=== PATIENT | male | born 1955 | race Caucasian/White ===

== ENCOUNTER → 2017-12-08 | Outpatient (CLI) | END | disposition home or self-care (01) ==

== ENCOUNTER 2018-02-10 07:30 | Inpatient (IN) | payer BC ==
[~2018-02-10] VITALS: Ht 185.4 cm; Wt 114.7 kg
[2018-03-26] MEDS ORDERED: HYDR-2086 PO (14:04)
[2018-03-26] MEDS ORDERED: ALLO100T PO (14:04)
[2018-03-26] MEDS ORDERED: AMLO-147 PO (14:04)
[2018-04-04] MEDS ORDERED: DOCU-144 PO (14:04)
[2018-04-04] MEDS ORDERED: HYDR-3671 PO (14:04)
[2018-04-04] MEDS ORDERED: PANT40TA3 PO (14:18)
[2018-10-27] VITALS (28 sets, daily range): BP systolic 114–150; BP diastolic 65–101; PULSE 62–79; RESP 12–21; Ht 185.4 cm; Wt 114.7 kg
[2018-10-27] MEDS ORDERED: LACTATED RINGER'S 1,000 ML IV* SCH (06:00)
[2018-10-27] MEDS ORDERED: CEFAZOLIN 2 GM/50 ML (PMX) 50 ML IVPB ONE (06:00)
[2018-10-27] MEDS ORDERED: TRANEXAMIC ACID 1,000 MG in NS 100 ML INTRA-OP X1 IVPB ONE (06:00)
[2018-10-27] MEDS ORDERED: HIP PAIN COCKTAIL (CEFUROXIME) INJ SCH ×7 (06:00)
--- NOTE | 2018-10-27 06:21 | HPN ---
Date/Time of Note Date/Time of Note DATE: 10/27/18 TIME: 06:21 Interval H&P Admission Note Pt. seen H&P reviewed: No system changes RAJESH OLGUIN MD Oct 27, 2018 06:21
[2018-10-27] MEDS ORDERED: POLYMYXIN/BACITRACIN 1L IRRIG ONE (06:57)
[2018-10-27] MEDS ORDERED: BACITRACIN 50000 UNITS INJ ONE (06:57)
--- NOTE | 2018-10-27 06:59 | PDOCDIS ---
Discharge Instructions DIAGNOSIS Discharge Diagnosis Status post right total hip arthroplasty CONDITION [id number] Patient Condition: Fuphn0i Good HOME CARE INSTRUCTIONS: [id number] Diet Instructions: Bfupz1c Regular ACTIVITY: [id number] Activity Restrictions: [id number] Slowly Increase Activity Rest between Activity Avoid heavy lifting No Sexual Activity Do not Drive Do not operate Machinery Do not operate Power Tool Avoid Heavy Housework Keep Limb Elevated Weight Bearing (Weight-bear as tolerated using front-wheeled walker) [id number] Bathing Restrictions: [id number] Shower (Prineo dressing to remain on until seen postoperatively. Okay to shower with this dressing. No bathing or submersion in water.) FOLLOW UP/APPOINTMENTS Follow-up Plan Follow-up at postoperative appointment provided to you at your preoperative exam LINA CHANDRA PA-C Oct 27, 2018 06:59
[2018-10-27] MEDS ORDERED: BETHANECHOL 25 MG TAB PO PRN (07:00)
[2018-10-27] MEDS ORDERED: DIPHENHYDRAMINE 50 MG INJ IV PRN (07:00)
[2018-10-27] MEDS ORDERED: ALLO100T PO (07:00)
[2018-10-27] MEDS ORDERED: DOCUSATE SODIUM 100 MG CAP PO ONE (07:00)
[2018-10-27] MEDS ORDERED: NA PHOSPHATE/BIPHOS 133 ML ENEMA PR PRN (07:00)
[2018-10-27] MEDS ORDERED: NACL 0.9% 3 ML SYG IV SCH (07:00)
[2018-10-27] MEDS ORDERED: NALOXONE (0.4 MG/ML) INJ IV PRN (07:00)
[2018-10-27] MEDS ORDERED: SENNA/DOCUSATE NA (8.6MG/50MG) TAB PO PRN (07:00)
[2018-10-27] MEDS ORDERED: POLYMYXIN B 500000 UNIT INJ ONE (07:00)
[2018-10-27] MEDS ORDERED: MAGNESIUM HYDROXIDE 30ML CUP PO PRN (07:00)
[2018-10-27] MEDS ORDERED: ASPIRIN 81 MG TAB PO ONE (07:00)
[2018-10-27] MEDS ORDERED: oxyCODONE 5 MG TAB PO PRN (07:00)
[2018-10-27] MEDS ORDERED: BISACODYL 10 MG SUPP PR PRN (07:00)
[2018-10-27] MEDS ORDERED: HYDR-3672 PO (07:01)
[2018-10-27] MEDS ORDERED: HYDR-3980 PO (07:01)
[2018-10-27] MEDS ORDERED: GABA100C14 PO (07:02)
--- NOTE | 2018-10-27 07:31 | PREAC ---
Date/Time of Note Date/Time of Note DATE: 10/27/18 TIME: 07:29 Anesthesia Eval and Record Evaluation Time Pre-Procedure Interview DATE: 10/27/18 TIME: 07:29 Age 62 Sex male NPO: 8 hrs Preoperative diagnosis Rt Hip osteoarthritis Planned procedure Rt Hip total replacement Past Medical History Past Medical History: Includes Cardio: HTN, Dyslipidemia Musculoskeletal: Osteoarthritis GI: Morbid obesity Surgery & Anesthesia Issues No known issue Meds Anticoagulation: No Beta Bladimir within 24 hr: No Reason Beta Bladimir not given: Pt. not on B-Bladimir Reported Medications Gabapentin* (Gabapentin*) 100 Mg Capsule, 100 MG PO TID, #90 CAP 10/27/18 Hydrocodone/Acetaminophen ([place] 10-325 Tablet) 1 Each Tablet, 1 EACH PO Q6 PRN for PAIN, TAB 10/27/18 Hydralazine Hcl* (Hydralazine Hcl*) 50 Mg Tab, 50 MG PO Q6H PRN for ELEVATED BLOOD PRESSURE, #60 TAB 10/27/18 Allopurinol* (Allopurinol*) 100 Mg Tablet, 100 MG PO DAILY, TAB 10/27/18 Discontinued Reported Medications Hydrocodone Bit-Acetaminophen* (Vicodin*) 5-300 Tab, 1 TAB PO Q4H PRN for PAIN, TAB 03/26/18 Amlodipine Besylate* (Amlodipine Besylate*) 10 Mg Tablet, 10 MG PO DAILY, #30 TAB 03/26/18 Allopurinol* (Allopurinol*) 100 Mg Tablet, 100 MG PO DAILY, TAB 03/26/18 Discontinued Scripts Pantoprazole* (Protonix*) 40 Mg Tablet.dr, 40 MG PO DAILY for 30 Days, TAB Prov:RA ADAMES MD 04/04/18 Docusate Sodium* (Colace*) 100 Mg Capsule, 100 MG PO BID for CONSTIPATION, #60 CAP Prov:RA ADAMES MD 04/04/18 Hydralazine Hcl* (Hydralazine Hcl*) 25 Mg Tab, 25 MG PO Q6 for 90 Days, TAB Prov:RA ADAMES MD 04/04/18 Current Medications Lactated Ringer's 1,000 ml @ 125 mls/hr Q8H IV* Last administered on 10/27/18at 07:21; Admin Dose 125 MLS/HR; Start 10/27/18 at 06:00; Stop 10/27/18 at 13:59 Ropivacaine/ Morphine Sulfate/ Clonidine/ Epinephrine/ Ketorolac Tromethamine/ Cefuroxime Sodium/ Sodium Chloride INTRA-OP INJ ; Start 10/27/18 at 06:00 Sodium Chloride 1,000 ml @ 80 mls/hr [id number] IV ; Start 10/27/18 at 07:00 Oxycodone HCl (Roxicodone) 15 mg Q4H PRN PO PAIN; Start 10/27/18 at 07:00 Oxycodone HCl (Roxicodone) 10 mg Q4H PRN PO PAIN; Start 10/27/18 at 07:00 Oxycodone HCl (Roxicodone) 5 mg Q4H PRN PO PAIN; Start 10/27/18 at 07:00 Ondansetron HCl (Zofran Inj) 4 mg Q4H PRN IV NAUSEA AND/OR VOMITING; Start 10/28/18 at 07:00 Cefazolin Sodium/ Dextrose 50 ml @ 100 mls/hr Q8H IVPB ; Start 10/27/18 at 14:00; Stop 10/28/18 at 06:29 Celecoxib (Celebrex) 100 mg BID PO ; Start 10/28/18 at 09:00 Gabapentin (Neurontin) 100 mg TID PO ; Start 10/27/18 at 09:00 Pantoprazole (Protonix Tab) 40 mg DAILY@06 PO ; Start 10/28/18 at 06:00 Docusate Sodium (Colace) 200 mg BID PO ; Start 10/28/18 at 09:00; Stop 10/30/18 at 21:01 Simethicone (Mylicon) 80 mg TID PRN PO DISTENSION/GAS/BLOATING; Start 10/27/18 at 07:00 Senna/Docusate Sodium (Senokot-S) 2 tab BID PRN PO CONSTIPATION; Start 10/27/18 at 07:00 Magnesium Hydroxide (Milk Of Mag) 30 ml HS PRN PO CONSTIPATION; Start 10/27/18 at 07:00 Bisacodyl (Dulcolax Supp) 10 mg DAILY PRN CA CONSTIPATION; Start 10/27/18 at 07:00 Sodium Biphosphate/ Sodium Phosphate (Fleet Enema) 133 ml DAILY PRN CA CONSTIPATION; Start 10/27/18 at 07:00 Diphenhydramine HCl (Benadryl) 25 mg Q4H PRN IV ITCHING; Start 10/27/18 at 07:00 Naloxone HCl (Narcan) 0.2 mg Q2M PRN IV DECREASED REPIRATORY RATE; Start 10/27/18 at 07:00 IV Flush (NS 3 ml) 3 ml per protocol IV ; Start 10/27/18 at 07:00 Bethanechol Chloride (Urecholine) 25 mg URINARY CATH D/C PRN PO UNABLE TO VOID; Start 10/27/18 at 07:00 Aspirin (Halfprin) 81 mg BID PO ; Start 10/28/18 at 09:00 Meds reviewed: Yes Allergies Coded Allergies: No Known Allergy (Unverified , 10/27/18) Allergies Reviewed: Yes Labs/Studies Labs Reviewed: Reviewed by anesthesiologist test: N/A Studies: ECG Pre-procedure Exam Last vitals Vital Signs Date Temp Pulse Resp B/P (MAP) Pulse Ox O2 O2 Flow FiO2 Time Delivery Rate 10/27/18 98.7 69 150/101 98 Room Air 07:16 (117) Airway: Adequate mouth opening, Adequate thyromental dist Mallampati: Mallampati III Teeth: Normal Lung: Normal Heart: Normal ASA Physical Status ASA physical status: 3 Emergency: None Planned Anesthetic General/MAC: ETT Neuraxial: Spinal Pre-operative Attestations Prior to commencing anesthesia and surgery, the patient was re-evaluated, there was verification of: *The patient's identity *The results of appropriate recent lab work and preoperative vital signs *The above evaluation not changing prior to induction *Anesthetic plan, risk benefits, alternative and complications discussed with patient/family; questions answered; patient/family understands, accepts and wishes to proceed. TAE MERCEDES MD Oct 27, 2018 07:31
[2018-10-27] MEDS ORDERED: MIDAZOLAM 1 MG/ML 2 ML INJ ONE (07:36)
[2018-10-27] MEDS ORDERED: morphine SULFATE/PF (10 MG/10 ML) INJ ONE (07:37)
[2018-10-27] MEDS: TRANEXAMIC ACID 1,000 MG in NS 100 ML PRE-OP X1 IVPB ONE ×2 (08:56→09:03)
[2018-10-27] MEDS ORDERED: LIDOCAINE 2% (SDV) 5 ML INJ ONE (09:41)
[2018-10-27] MEDS ORDERED: ETOMIDATE 20 MG INJ ONE (09:41)
[2018-10-27] MEDS ORDERED: CEFAZOLIN 1 GM INJ ONE (09:41)
[2018-10-27] MEDS ORDERED: ROCURONIUM 50 MG INJ ONE (09:41)
[2018-10-27] MEDS ORDERED: PROPOFOL 20 ML ONE (09:42)
[2018-10-27] MEDS ORDERED: ONDANSETRON 4 MG INJ ONE (09:46)
--- NOTE | 2018-10-27 10:04 | NUR ---
nursing rr Received pt from OR not in any distress .Pt s/p right total hip replacement /dsg to right hip clean and dry .Neuro vascular check done and it is WNL .Pedal pulse +3 ,warm to touch ,iv to l hand g20 needle with lr infusing well .
--- NOTE | 2018-10-27 10:08 | PAC ---
Date/Time of Note Date/Time of Note DATE: 10/27/18 TIME: 10:08 Post-Anesthesia Notes Post-Anesthesia Note Last documented vital signs Vital Signs Date Temp Pulse Resp B/P (MAP) Pulse Ox O2 O2 Flow FiO2 Time Delivery Rate 10/27/18 98.7 69 150/101 98 Room Air 07:16 (117) Activity: WNL Respiratory function: WNL Cardiovascular function: WNL Mental status: Baseline Pain reasonably controlled: Yes Hydration appropriate: Yes Nausea/Vomiting absent: Yes Comments BP:126/67, pulse:78, spo2:100%, T:98,8 TAE MERCEDES MD Oct 27, 2018 10:08
--- NOTE | 2018-10-27 10:14 | SIPON ---
Date/Time of Note Date/Time of Note DATE: 10/27/18 TIME: 10:12 Operative Report Preoperative Diagnosis Right Hip Osteoarthritis Postoperative Diagnosis Same Operation/Procedure Performed Right Total Hip Arthroplasty Surgeon Keith Olguin MD dyer assistant Carlos A Benoit Second assist: LINA CHANDRA PA-C Anesthesia: spinal Estimated blood loss: 250 - 300 ml's Transfusion Required none Specimen Bone Grafts/Implants none Complications none KEITH OLGUIN MD Oct 27, 2018 10:14
[2018-10-27] MEDS: CEFAZOLIN 2 GM/50 ML (PMX) 50 ML IVPB SCH ×2 (10:22→21:58)
--- NOTE | 2018-10-27 10:23 | OPR ---
Date/Time of Note Date/Time of Note DATE: 10/27/18 TIME: 10:20 Operative Report Free Text/Dictation DATE OF OPERATION: October 27, 2018 PREOPERATIVE DIAGNOSIS: Right hip osteoarthritis. POSTOPERATIVE DIAGNOSIS: Right hip osteoarthritis. PROCEDURES PERFORMED: 1. Right total hip arthroplasty. CPT code 88148. 2. Computer assisted navigational procedure, CPT code 31154. 3. Interpretation of AP Pelvis x-ray. 4. Interpretation of right hip, 2 views. SURGEON: Rajesh Olguin. VOLUNTEER PATIENT REPRESENTATIVE: 1. NATALIO Morrow 2. Carlos A Benoit. ANESTHESIOLOGIST: Dr. Spencer ANESTHESIA: Spinal ESTIMATED BLOOD LOSS: 300 mL. COMPLICATIONS: None. SPECIMENS: Resected bone. DISPOSITION: PACU in stable condition. IMPLANT USED: A DePuy KLA size 12 standard stem, 36/+5 delta ceramic femoral head, 56 Spring Cup, 36 neutral liner COMPLICATIONS: None. DISPOSITION: To PACU in stable condition. INDICATION FOR PROCEDURE: This is an 62 year-old male with endstage osteoarthritis of the right hip who had failed nonoperative management. Risks, benefits, alternatives of surgical intervention were discussed with the patient and informed consent was obtained. The risks of surgery include but are not limited to infection, deep venous thrombosis, pulmonary embolism, leg length discrepancy, fracture, damage to neurovascular structures requiring repair, loosening of the prosthesis, wear of prosthesis, need for revision surgery, heart attack, stroke, need for blood transfusion, risks associated with anesthesia and even . DESCRIPTION OF PROCEDURE: The patient was met in the preoperative suite and the correct operative site was confirmed and marked. Patient was then brought into operating room. After induction of general anesthesia, the patient was placed in the supine position on the table. The right lower extremity was prepped and draped in the usual sterile fashion. Before starting, a timeout was taken to identify the correct operative site, the patients name and medical record number and to confirm the preoperative antibiotics consisting of 1 gram of IV Ancef, along with 1 gram of tranexamic acid were administered. At this point, an 8 cm incision was made approximately 2 cm lateral and 1 cm distal to the ASIS. The incision was carried down to the fascia. The fascia was then incised. Then, 2 Allis clamps were placed. The interval was then bluntly developed and the tensor fascia ryan was then retracted laterally. The lateral circumflex vessels were identified and coagulated. The anterior capsule was then visualized and a capsulotomy was performed. At this point, markings were made for the napkin ring osteotomy of the femoral neck. Using the saw the initial osteotomy was then made and completed with the use of an osteotome. A Chana was then used to remove the napkin ring and a corkscrew was then placed in the femoral head and the head was then removed. The head was sized to 50 mm. Sequential reaming was begun with a 49 mm reamer, going up to a 55 mm reamer. A trial 56 mm cup was then impacted and the radlink was then used to determine the appropriate anteversion and abduction of the cup. The cup was noted to be in approximately 42 degrees of inclination, and 20 degrees of anteversion. The trial was then removed. The appropriate size cup was then placed and again the radlink was used to determine the inclination and anteversion, and was noted be unchanged. The 36 mm liner was then impacted into place and the final acetabular x-rays were taken which again demonstrated the cup to be in appropriate abduction and anteversion. At this point, the femoral lift was then used and the leg was then placed in external rotation, extension, and adduction. Retractors were placed and the femoral releases were performed using a box osteotome followed by a canal finder. Sequential broaching was begun with a 8 broach going up to a size 12 broach. The trial 12 mm standard offset stem along with a 36/+5 trial head and neck were placed. The hip was then reduced and taken through range of motion, noted to be stable in extension and external rotation of up to 110 degrees. AP x-rays of the pelvis and right hip, 2 view x-rays were taken. The x-rays demonstrated the prosthesis to be in the correct position with equal leg lengths. The trial components were then removed. The appropriate sized components were then placed. The hip was again reduced with unchanged stability and equal leg lengths and no fractures were seen. The hip was again taken through range of motion and noted to be stable to extension and external rotation. The wound was then thoroughly irrigated. The capsule and the fascia were closed using #1 Stratafix. The subcutaneous tissue was closed using 2-0 Vicryl and the skin with 4-0 Monocryl in subcuticular fashion and Steri-Strips were applied. There were no complications. Patient was awakened and taken to postoperative care unit in stable condition. Prior to transfer, the patient was noted to have equal leg lengths and a palpable dorsalis pedis pulse. POSTOPERATIVE CARE: Patient will be weightbearing as tolerated. Patient will work with physical therapy, and receive multimodal pain management.. Patient will receive two additional doses of IV Ancef along with aspirin 81 mg p.o. b.i.d. for 6 weeks. Patient will have SCDs while in the hospital. Upon discharge, patient will follow up in my office within 2 weeks postoperatively. RAJESH OLGUIN MD Oct 27, 2018 10:23
--- NOTE | 2018-10-27 11:42 | NUR ---
transfer PT TRANSFER TO ROOM 407 IN STABLE CONDITION REPORT GIVEN TO FLOOR RN CARE PROVIDED PER [facility] STANDARDS.
--- NOTE | 2018-10-27 11:45 | NUR ---
RECEIVED PATIENT REPORT FROM CLINICAL PROJECT COORDINATORBETZY RIVERA AT 11.35. RECERIVED PATIENT TO UNIT ROOM 407 AT 1145 AFTER RIGHT HIP REPLACEMENT BY DR. LOZANO UNDER GENERAL ANAESTHESIA. PATIENT ALERT ,ORIENTED, VITALS STABLE ON ADMISSION.PATIENT IV SITE ON LEFT HAND INTACT AND IV FLUID ON FLOW. ON OXYGEN VIA NC 1 LITERS ON FLOW. RIGHT HIP SURGICAL SITE IS INTACT AND NO BLEEDING OR DRAINAGE NOTED .PATIENT IS ON ADVANCE TO CLEAR LIQUID DIET. PATIENT INTRODUCED TO THE STAFF AND ALL SAFETY PRECAUTIONS INTRODUCED SUCH BED IN THE LOWEST POSITION ALARMS ON , BRAKES ON. CALL LIGHT WITHIN REACH. ENCOURAGED TO USE THE CALL LIGHT. WILL CONTINUE TO MONITOR.
[2018-10-27] MEDS: GABAPENTIN 100 MG CAP PO SCH ×3 (13:00→21:00)
--- NOTE | 2018-10-27 13:00 | NUR ---
OT EVAL Patient is a 62 year old male admitted to [facility] for a R SEEMA which was performed today. PMH: HTN, dyslipidemia, morbid obesity PRECAUTIONS: avoid extreme hip extension and external rotation (anterior approach), WBAT PLOF: Patient lives alone in a condo with 7 steps to access the home and 7 steps to access the garage. Prior to hospitalization, patient was independent with ambulation and had been using axillary crutches for approximately one year due to R hip pain. Patient was independent with performance of ADLs. Patient also owns a FWW at home. CLOF: Inga BO cleared patient for OT evaluation. Pt received supine in bed with family members at bedside. Pt agreeable to tx stating 0/10 pain and demonstrated BUE AROM WFL/ MMT 5/5. OTR educated pt on hip precautions (anterior approach) and introduced AE for LB dressing. Pt performed supine->sit at EOB with supervision. Seated at EOB pt donned socks and underwear using AE with Mod I. Pt performed STS and functional mob using FWW with CGA and good safety awareness. Pt then performed 12/24 commode transfer with CGA requiring vc for proper positioning. Pt left seated at EOB. RN notified. Pt will benefit from skilled OT tx 1x daily for 3-5x week to increase safety awareness, balance, endurance and independence with self care. Recommend d/c Home when medically cleared by MD. Anticipated DME upon discharge 3 commode.
--- NOTE | 2018-10-27 14:20 | NUR ---
PT EVALUATION NOTE: Patient is a 62 year old male admitted to [facility] for a R SEEMA which was performed today. PMH: HTN, dyslipidemia, morbid obesity PRECAUTIONS: avoid extreme hip extension and external rotation (anterior approach), WBAT PLOF: Patient lives alone in a condo with 7 steps to access the home and 7 steps to access the garage. Prior to hospitalization, patient was independent with ambulation and had been using axillary crutches for approximately one year due to R hip pain. Patient was independent with performance of ADLs. Patient also has a FWW at home. CLOF: Inga BO cleared patient for PT evaluation. Patient agreed to participate with PT evaluation, denied pain. Received patient sitting up at the EOB, BP 136/67, HR 71. Patient educated in fall precautions, hip precautions (avoid extreme extension and external rotation) and purpose of PT evaluation. Patient able to perform sit to stand with SBA and FWW, verbal cues for proper hand and foot placement. Gait training with FWW and CGA x 80 feet, slight loss of balance x1, patient able to recover independently. Patient returned to sitting at EOB, OT present in room for treatment. Inga BO notified of patient's status at the end of the session. RECOMMENDATION: Patient will benefit from skilled inpatient PT intervention to address strength, patient education, functional mobility. Anticipate discharge home with family assistance once medically cleared by MD. POC to include gait training and stair training with crutches.
[2018-10-27] MEDS: SOD CHLORIDE 0.9% 1,000 ML IV SCH ×2 (16:52→19:30)
--- NOTE | 2018-10-27 18:30 | NUR ---
END OF SHIFT NOTE: PATIENT COMFORTABLE. TOLERATED WITH DIET . NO NAUSEA, VOMITING COMPLAINED. OT AND PT SEEN HIM IN NOON TOLERATED WELL. IV FLUIDS CONTINUED. GIVEN URICHOLINE AND VOIDED 200 ML , ALL SAFETY PRECAUTIONS MAINTAINED . CALL LIGHT WITHIN REACH. WILL CONTINUE TO MONITOR.
--- NOTE | 2018-10-27 19:34 | NUR ---
HOSPITALIST: Informed hospitalist group re: patient's arrival to floor postop joint replacement by Dr. Casillas. Patient due to have meds reconciled. Hospitalist group notified and will address this amongst their group.
--- NOTE | 2018-10-27 21:43 | CONS ---
DATE OF ADMISSION: 10/27/2018 DATE OF CONSULTATION: 10/27/2018 TIME OF EVALUATION: About 12:30 p.m. INDICATION FOR CONSULTATION: Medical management. HISTORY OF PRESENTING COMPLAINT: Mr. Larios is a pleasant 62-year-old male with a past medical histo ry of hypertension, history of stage II colon cancer, renal insufficiency, osteoarthritis, and gout w ho was brought in for an elective right total hip arthroplasty due to severe right osteoarthritis. I am seeing him in the immediate postoperative period after which he has undergone right total hip art hroplasty, and at this time, the patient has no significant complaints. He was in his normal state o f health prior to surgery and surgery was said to have gone well with minimal blood loss. At this ti me, patient is being admitted for postoperative care and observation. PAST MEDICAL HISTORY: 1. Hypertension. 2. History of stage II colon cancer. 3. Renal insufficiency. 4. Stressors. 5. Gout. 6. Kidney stones. PAST SURGICAL HISTORY: Hemicolectomy for colon cancer, fracture in 2004, cataract surgery in . FAMILY HISTORY: Positive for Alzheimer's and diabetes in his mother, as well as gout arthritis and h ypertension in his father. SOCIAL HISTORY: Never smoked, moderate alcohol drinker. Denies illicit drug use. HOME MEDICATIONS: Reviewed and reconciled. REVIEW OF SYSTEMS: A 12-point review of system was done and pertinent findings HPI. PHYSICAL EXAMINATION: VITAL SIGNS: Temperature 98.0, pulse 67, respirations 18, blood pressure 122/76, saturations 99%. H e is on oxygen and nasal cannula at 1 liter per minute for consult. GENERAL: The patient is alert and oriented. He is in no distress at this time a bit lethargic from anesthesia. HEENT: Head is normocephalic. Pupils are equal and reactive. Mucous membranes are moist. Posterio r pharynx clear of erythema and exudate. NECK: Supple without adenopathy or JVD. CHEST: Clear to auscultation with mildly diminished entry in the bases. CARDIOVASCULAR: S1 and S2, no added sounds or murmurs. ABDOMEN: Soft, nontender, nondistended. Normoactive bowel sounds. EXTREMITIES: He did have spinal anesthesia. Surgical site is covered with clean and dry dressing. No oozing, no redness, no cellulitis. LABORATORY VALUES: No new lab studies to report today. ASSESSMENT AND PLAN: This is 62-year-old male who was brought in for elective right total hip arthro plasty due to severe right hip osteoarthritis for whom we were consulted for management of his medica l conditions as follows: 1. Hypertension. At this time, patient's blood pressures were well controlled. I will hold off on resuming his blood pressure medicine until tomorrow so as not to cause inadvertent hypotension. 2. History of gout. Again, resume home allopurinol in the morning. 3. History of stage II colon CA: The patient said to be in remission at this time. He says he is compliant with his regular followup. No further intervention required. 4. Chronic osteoarthritis, status post right-sided total hip arthroplasty today, postoperative pain management also. 5. History of kidney stones: No intervention required at this time. DISPOSITION: Continue routine postop care. DVT prophylaxis again, per ortho. Thank you for the consult. We will continue to follow with you. Dictated By: SELENA KOO MD, BA/NTS Conf#: [id number] DID#: [id number] CC: RAJESH OLGUIN MD;*EndCC*
[2018-10-27] MEDS: oxyCODONE 5 MG TAB PO PRN (21:59)
[2018-10-28] VITALS: BP 138/85; PULSE 101; RESP 20
[2018-10-28] MEDS: CEPASTAT LOZENGE MT PRN ×3 (02:32→14:44)
--- NOTE | 2018-10-28 03:25 | NUR ---
PATIENT IS SITTING ON THE EDGE OF THE BED HOLDING THE URINAL, OFFERED HELP BUT REFUSED, STATES " I AM OKAY AND I WILL CALL IF I NEED HELP". Addendum: 10/28/18 at 0331 by SANGEETA AMEZCUA RN Amended: Links added.
[2018-10-28] MEDS: oxyCODONE 5 MG TAB PO PRN ×3 (03:46→13:17)
[2018-10-28] MEDS: SOD CHLORIDE 0.9% 1,000 ML IV SCH (03:52)
[2018-10-28] MEDS ORDERED: PANTOPRAZOLE (EC) 40 MG TAB PO SCH (06:00)
[2018-10-28] MEDS: CEFAZOLIN 2 GM/50 ML (PMX) 50 ML IVPB SCH (06:59)
[2018-10-28] MEDS ORDERED: ONDANSETRON 4 MG INJ IV PRN (07:00)
[2018-10-28 07:58] VITALS: BP 109/76; PULSE 92; RESP 18
[2018-10-28] MEDS: GABAPENTIN 100 MG CAP PO SCH ×2 (08:30→13:17)
--- NOTE | 2018-10-28 08:40 | PN ---
Date/Time of Note Date/Time of Note DATE: 10/28/18 TIME: 08:38 Assessment/Plan VTE Prophylaxis VTE Prophylaxis Intervention: ambulation, SCD's, other (Aspirin 81 mg) Lines/Catheters IV Catheter Type (from Nrsg): Peripheral IV Salazar in Place (from Nrsg): No Assessment/Plan Assessment/Plan -Pain Meds as needed -ASA for DVT Prophylaxis x 6 weeks outpatient discussed. -Continue monitoring as outpatient on discharge -Follow-up at scheduled postop outpatient appointment or sooner if there is any issue. -Hip precautions discussed -Patient Stable -Discharge to Home with home health if cleared by physical therapy. Patient states that he would like to go home today if cleared by physical therapy. We will continue to monitor but he was made aware that if he needs to stay an extra night that is permissible given limited functional physical therapy that was performed yesterday. We will see how today goes but discharge order for home placed and if cleared he may go if not we will follow-up with patient tomorrow. Subjective 24 Hr Interval Summary 8-year-old male postop day 1 status post right total hip arthroplasty. Patient experienced severe pain. Oxycodone does help improve pain. Patient was taking up to 7-10 steps with physical therapy. Currently in pain. Resting in bed. Pain Control: severe Exam/Review of Systems Vital Signs Vitals Vital Signs Date Temp Pulse Resp B/P (MAP) Pulse Ox O2 O2 Flow FiO2 Time Delivery Rate 10/28/18 98.0 92 18 109/76 99 Room Air 07:58 (87) 10/27/18 1.0 19:20 Intake and Output 10/27/18 10/27/18 10/28/18 1515:00 23:00 07:00 IntakeIntake Total 1470 ml 730 ml 1180 ml OutputOutput Total 75 ml 470 ml 1300 ml BalanceBalance 1395 ml 260 ml -120 ml Exam Free Text/Dictation -No complications with dressing intact. -Thigh soft -4+/5 Quadriceps, Tibialis Anterior, EHL Gastrocnemius/Soleus and Peroneals -Normal Sensation -Palpable DP/PT, Capillary Refill <2 secs -No Distal Edema -Negative Sonia Sign/No calf pain -Toes Freely Movable Constitutional: alert, oriented, well developed Results Result Diagram: 10/28/18 0429 10/28/18 0429 LINA CHANDRA PA-C Oct 28, 2018 08:40
[2018-10-28] MEDS ORDERED: ALLOPURINOL 100 MG TAB PO SCH (09:00)
[2018-10-28] MEDS ORDERED: DOCUSATE SODIUM 100 MG CAP PO SCH (09:00)
[2018-10-28] MEDS ORDERED: CELECOXIB 100 MG CAP PO SCH (09:00)
[2018-10-28] MEDS ORDERED: ASPIRIN (EC) 81 MG TAB PO SCH (09:00)
--- NOTE | 2018-10-28 09:20 | NUR ---
OT NOTE S: RN cleared pt for skilled OT tx. Pt agreeable to tx stating 1/10 pain in right hip. O: Pt received supine in bed. Pt performed STS, functional mob and toilet transfer using FWW with supervision demonstrating good safety awareness. Pt stood at bathroom sink with supervision while completing h/g task independently. OTR reviewed Anterior hip precautions. Pt left seated at EOB with Physical Therapist. RN notified. A: Pt demonstrates good safety awareness with AE and with ADL's. P: Cont OT POC.
--- NOTE | 2018-10-28 10:25 | NUR ---
PT NOTE: S: Patient c/o pain R hip surgical site rated at 1/10, agreeable to participate with PT treatment. O: Received patient sitting up in bedside chair, completed treatment with OT. Sitting BP 119/79, HR 108. Transfer training holding axillary crutches in R hand and pushing up on chair with left hand. Gait training in hallway x 200 ft with axillary crutches, step through gait pattern, appropriate velocity and use of crutches. Patient with tendency to adduct RLE during gait, verbal cues to maintain slight abduction of RLE. Stair training CGA up/down 4 stairs x 2 holding both crutches with R hand and holding rail with left hand. Verbal cues provided for proper sequencing on the stairs. Patient returned to room, transfer training performed in/OOB to simulate situation at home with patient entering the bed leading with the RLE. Patient instructed in ther ex as follows: APs, QS, glut sets and heel slides x 10 reps. Patient remained supine in bed, call light within reach, all needs met. Jackie BO notified of patient's status at the end of the session. A: Progressing with ambulation with crutches, needed VC for proper sequence for stairs. Good treatment tolerance with min pain. P: Cont with POC, provide patient with HEP handout.
--- NOTE | 2018-10-28 11:16 | PN ---
Date/Time of Note Date/Time of Note DATE: 10/28/18 TIME: 11:14 Assessment/Plan VTE Prophylaxis Risk score (from Ns)>0 risk: 7 SCD applied (from Nsg): Yes Pharm contraindication: other (per ortho) Lines/Catheters IV Catheter Type (from Nrs): Peripheral IV Urinary Cath still in place: No Assessment/Plan Assessment/Plan This is 62-year-old male who was brought in for elective right total hip arthroplasty due to severe right hip osteoarthritis for whom we were consulted for management of his medical conditions as follows: 1. Hypertension. At this time, patient's blood pressures were well controlled. -resume home meds at home 2. History of gout. -continue home allopurinol 3. History of stage II colon CA: - The patient said to be in remission at this time. He says he is compliant with his regular followup. No further intervention required. 4. Chronic osteoarthritis, status post right-sided total hip arthroplasty 10/27/18, postoperative pain management also per ortho 5. History of kidney stones: No intervention required at this time. DISPOSITION: cleared for d/c from med standpoint Result Diagram: 10/28/18 0429 10/28/18 0429 Results 24hrs Laboratory Tests Test 10/28/18 04:29 10/28/18 07:03 White Blood Count 6.6 # Red Blood Count 3.50 L Hemoglobin 9.3 L Hematocrit 29.8 L Mean Corpuscular Volume 85.1 Mean Corpuscular Hemoglobin 26.6 #L Mean Corpuscular Hemoglobin Concent 31.2 L Red Cell Distribution Width 16.0 #H Platelet Count 137 #L Mean Platelet Volume 12.1 #H Immature Granulocytes % 0.300 Neutrophils % 74.8 Lymphocytes % 11.3 L Monocytes % 12.7 H Eosinophils % 0.6 Basophils % 0.3 Nucleated Red Blood Cells % 0.0 Immature Granulocytes # 0.020 Neutrophils # 4.9 Lymphocytes # 0.8 Monocytes # 0.8 Eosinophils # 0.0 Basophils # 0.0 Nucleated Red Blood Cells # 0.0 Prothrombin Time 30.6 #H Prothrombin Time Ratio 2.4 INR International Normalized Ratio 2.93 Sodium Level 136 Potassium Level 4.2 Chloride Level 104 Carbon Dioxide Level 28 Anion Gap 4 L Blood Urea Nitrogen 19 Creatinine 1.52 H Est Glomerular Filtrat Rate mL/min 47 L Glucose Level 145 Calcium Level 8.6 Lab Scanned Report REFERENCE LAB Subjective 24 Hr Interval Summary Free Text/Dictation s: no new complaints, planned for d/c today if cleared by PT Exam/Review of Systems Vital Signs Vitals Vital Signs Date Temp Pulse Resp B/P (MAP) Pulse Ox O2 O2 Flow FiO2 Time Delivery Rate 10/28/18 98.0 92 18 109/76 99 Room Air 07:58 (87) 10/27/18 1.0 19:20 Intake and Output 10/27/18 10/27/18 10/28/18 1414:59 22:59 06:59 IntakeIntake Total 1470 ml 730 ml 1180 ml OutputOutput Total 75 ml 470 ml 1300 ml BalanceBalance 1395 ml 260 ml -120 ml Exam Constitutional: alert, oriented Head: normocephalic Eyes: PERRL ENMT: mucosa pink and moist Neck: supple Respiratory: clear to auscultation Cardiovascular: regular rate and rhythm Gastrointestinal: soft, non-tender, bowel sounds Extremities: No edema Medications Medications Current Medications Sodium Chloride 1,000 ml @ 80 mls/hr [id number] IV Last administered on 10/28/18at 03:52; Admin Dose 80 MLS/HR; Start 10/27/18 at 07:00 Oxycodone HCl (Roxicodone) 15 mg Q4H PRN PO PAIN Last administered on 10/28/18at 08:31; Admin Dose 15 MG; Start 10/27/18 at 07:00 Oxycodone HCl (Roxicodone) 10 mg Q4H PRN PO PAIN Last administered on 10/28/18at 03:46; Admin Dose 10 MG; Start 10/27/18 at 07:00 Oxycodone HCl (Roxicodone) 5 mg Q4H PRN PO PAIN; Start 10/27/18 at 07:00 Ondansetron HCl (Zofran Inj) 4 mg Q4H PRN IV NAUSEA AND/OR VOMITING; Start 10/28/18 at 07:00 Celecoxib (Celebrex) 100 mg BID PO Last administered on 10/28/18at 08:30; Admin Dose 100 MG; Start 10/28/18 at 09:00 Gabapentin (Neurontin) 100 mg TID PO Last administered on 10/28/18at 08:30; Admin Dose 100 MG; Start 10/27/18 at 09:00 Pantoprazole (Protonix Tab) 40 mg DAILY@06 PO Last administered on 10/28/18at 06:58; Admin Dose 40 MG; Start 10/28/18 at 06:00 Docusate Sodium (Colace) 200 mg BID PO Last administered on 10/28/18at 08:30; Admin Dose 200 MG; Start 10/28/18 at 09:00; Stop 10/30/18 at 21:01 Simethicone (Mylicon) 80 mg TID PRN PO DISTENSION/GAS/BLOATING; Start 10/27/18 at 07:00 Senna/Docusate Sodium (Senokot-S) 2 tab BID PRN PO CONSTIPATION; Start 10/27/18 at 07:00 Magnesium Hydroxide (Milk Of Mag) 30 ml HS PRN PO CONSTIPATION; Start 10/27/18 at 07:00 Bisacodyl (Dulcolax Supp) 10 mg DAILY PRN VT CONSTIPATION; Start 10/27/18 at 07: 00 Sodium Biphosphate/ Sodium Phosphate (Fleet Enema) 133 ml DAILY PRN VT CONSTIPATION; Start 10/27/18 at 07:00 Diphenhydramine HCl (Benadryl) 25 mg Q4H PRN IV ITCHING; Start 10/27/18 at 07:00 Naloxone HCl (Narcan) 0.2 mg Q2M PRN IV DECREASED REPIRATORY RATE; Start 10/27/18 at 07:00 IV Flush (NS 3 ml) 3 ml per protocol IV ; Start 10/27/18 at 07:00 Bethanechol Chloride (Urecholine) 25 mg URINARY CATH D/C PRN PO UNABLE TO VOID Last administered on 10/27/18at 16:51; Admin Dose 25 MG; Start 10/27/18 at 07:00 Aspirin (Halfprin) 81 mg BID PO Last administered on 10/28/18at 08:30; Admin Dose 81 MG; Start 10/28/18 at 09:00 Allopurinol (Zyloprim) 100 mg DAILY PO Last administered on 10/28/18at 08:30; Admin Dose 100 MG; Start 10/28/18 at 09:00 Phenol (Cepastat Lozenge) 1 lozenge Q1H PRN MT SORE THROAT Last administered on 10/28/18at 03:47; Admin Dose 1 LOZENGE; Start 10/28/18 at 02:00 SELENA KOO Oct 28, 2018 11:16
[2018-10-28 14:08] VITALS: BP 123/63; PULSE 90; RESP 18
--- NOTE | 2018-10-28 14:38 | NUR ---
PT NOTE: S: Patient c/o pain R hip surgical site rated at 7/10, agreeable to participate with PT treatment. O: Jackie BO cleared patient for PT treatment. Received patient semi-supine in bed. instructed in ther ex as follows: APs, QS, glut sets, hamstring sets, heel slides and SAQs. Provided patient with handout for HEP and hip precautions. Patient able to come to sitting position at the EOB with supervision. Transfer training sit to stand holding axillary crutches in R hand and pushing up on bed with left hand. Gait training in hallway x 200 ft with axillary crutches and SBA, step through gait pattern, appropriate velocity and use of crutches. Less tendency to adduct RLE during gait. Stair training SBA up/down 1 flight of stairs holding both crutches with R hand and holding rail with left hand with proper sequencing on the stairs without cueing. Patient returned to room, patient remained sitting up at the EOB, call light within reach, all needs met. Jackie BO notified of patient's status at the end of the session. A: Patient demonstrates indep bed mobility, supervised transfers with axillary crutches, safe ambulation with axillary crutches on level ground and stairs. Improved follow through with sequencing on stairs. Good treatment tolerance despite increased pain. P: Patient scheduled to be discharged home later today. Received shower chair. Has own FWW and axillary crutches.
--- NOTE | 2018-10-28 15:12 | NUR ---
CM NOTES: MET WITH THE PT AT THE BEDSIDE. PRIOR TO THE ADMISSION, PT LIVED ALONE AND WILL BE STAYING WITH THE DAUGHTER, [facility] [address] [place] [address], , (O) OR . PT USED FWW AND CRUTCHES AT HOME BUT NEED A SHOWER CHAIR. SHOWER CHAIR WAS DELIVERED TO THE BEDSIDE FROM [facility]. INFORMED PT THAT DUE TO HOLIDAYS, THIS CM STILL CANNOT CONFIRM THE HOME HEALTH BUT HE AGREED TO BE DC HOME TO HIS DAUGHTER'S HOME. THIS CM WILL FOLLOW UP AGAIN WITH THE . BRIDGETTE KNOX CM [id number] Addendum: 10/29/18 at 1516 by BRIDGETTE SALMON CM Amended: Links added.
--- NOTE | 2018-10-28 16:43 | NUR ---
Discharge note Patient and family educated on all d/c instructions, patient health summary and prescribed medications. IV access removed and dry gauze applied. Patient and family verbalized understanding all information explained. Patient sent down via wheelchair, accompanied by family.
--- NOTE | 2018-10-29 08:38 | DS ---
Date/Time of Note Date/Time of Note DATE: 10/29/18 TIME: 08:37 Discharge Summary Admission/Discharge Info Admit Date/Time Oct 27, 2018 at 05:55 Discharge Date/Time Oct 28, 2018 at 16:45 Discharge Diagnosis Status post right total hip arthroplasty Patient Condition: Good Hospital Course On the day of admission, the patient underwent right total hip arthroplasty Intraoperative complications: None Postoperative complications: None The patient was given prophylactic antibiotics and anticoagulants. On the day of surgery and first postoperative day patient was started on gait training and was taught usual restrictions following anterior hip replacement On postoperative day 1 dressing was clean dry and intact. No complications were observed. On the day of discharge, the wound was clean and healing well; there was no sign of infection. Wound care instructions were discussed with the patient. Discharge Temperature: 98.6 degrees Discharge White Blood Cell Count: 6.6 Discharge Hemoglobin: 9.3 The patient was discharged home with home health. Arrangements were made for visiting nurses and home health/physical therapy. The patient will be seen in office at scheduled postoperative evaluation date given on their preoperative exam. Should patient complain of any problems prior to scheduled postoperative evaluation date, they may call into outpatient clinic to determine if they need to be scheduled at sooner appointment to be seen immediately if needed. Discharge medications: As per medication reconciliation form Diet: Same as preadmission diet. This is Lina Topete PA-C dictating discharge summary for Dr. Meng Coleman. Home Meds Reported Medications Gabapentin* (Gabapentin*) 100 Mg Capsule, 100 MG PO TID, #90 CAP 10/27/18 Hydrocodone/Acetaminophen ([place] 10-325 Tablet) 1 Each Tablet, 1 EACH PO Q6 PRN for PAIN, TAB 10/27/18 Hydralazine Hcl* (Hydralazine Hcl*) 50 Mg Tab, 50 MG PO Q6H PRN for ELEVATED BLOOD PRESSURE, #60 TAB 10/27/18 Allopurinol* (Allopurinol*) 100 Mg Tablet, 100 MG PO DAILY, TAB 10/27/18 Discontinued Reported Medications Hydrocodone Bit-Acetaminophen* (Vicodin*) 5-300 Tab, 1 TAB PO Q4H PRN for PAIN, TAB 03/26/18 Amlodipine Besylate* (Amlodipine Besylate*) 10 Mg Tablet, 10 MG PO DAILY, #30 TAB 03/26/18 Allopurinol* (Allopurinol*) 100 Mg Tablet, 100 MG PO DAILY, TAB 03/26/18 Discontinued Scripts Pantoprazole* (Protonix*) 40 Mg Tablet.dr, 40 MG PO DAILY for 30 Days, TAB Prov:RA ADAMES MD 04/04/18 Docusate Sodium* (Colace*) 100 Mg Capsule, 100 MG PO BID for CONSTIPATION, #60 CAP Prov:RA ADAMES MD 04/04/18 Hydralazine Hcl* (Hydralazine Hcl*) 25 Mg Tab, 25 MG PO Q6 for 90 Days, TAB Prov:RA ADAMES MD 04/04/18 Follow-up Plan Follow-up at postoperative appointment provided to you at your preoperative exam Primary Care Provider Not On Staff Doctor LINA CHANDRA PA-C Oct 29, 2018 08:38
--- NOTE | 2018-10-29 15:16 | NUR ---
CM NOTES: THIS CM T/C AND MADE REFERRAL TO [facility] [phone] AND S/[facility] [phone] AND ALSO FAXED THE REQUEST TO [facility]. HOWEVER, THIS CM IS STILL UNABLE TO SPEAK TO [facility] INTAKE FOR CONFIRMATION AFTER THREE PHONE CALLS. THIS CM REQUESTED [facility]S ASSISTANCE. SHE AGREED TO CALL [facility] INTAKE DEPARTMENT. ALSO PROVIDED ALL THE UPDATE TO THE PT DIRECTLY. PT APPRECIATED THE UPDATE. BOTH AND [facility] THAT IS STAYING WITH THE DAUGHTER'S HOME. WILL REMAIN AVAILABLE NEEDED. BRIDGETTE SALMON LEAD CM [phone]
--- NOTE | 2018-10-29 15:33 | NUR ---
CM NOTES: RECEIVED A CALL BACK FROM [facility] AND [facility]. CONFIRMED THE ACCEPTANCE FOR TOMORROW SERVICES. THEY WILL CALL THE PT DIRECTLY. BRIDGETTE SALMON LEAD CM [phone]
== END 2018-10-28 16:45 | disposition home health service (06) | DRG 470 ==
LOC: REC 10-27 05:55 → MS1 10-27 11:25
PROVIDERS: ADMIT Orthopaedic Surgery Adult Reconstructive Orthopaedic Surgery; ATTEND Orthopaedic Surgery Adult Reconstructive Orthopaedic Surgery
PROC: 0SR904A Replacement of Right Hip Joint with Ceramic on Polyethylene Synthetic Substitute, Uncemented, Open Approach (ICD-10-PCS; principal; 2018-10-27 07:30)
DX: M16.11 Unilateral primary osteoarthritis, right hip (principal); I10 Essential (primary) hypertension; E78.5 Hyperlipidemia, unspecified; E66.9 Obesity, unspecified; M10.9 Gout, unspecified; Z68.33 Body mass index [BMI] 33.0-33.9, adult; Z85.038 Personal history of other malignant neoplasm of large intestine
CPT/HCPCS: 72170; 73500; 73530; 80048; 85025; 85610; 86850; 86900; 86901; 88304; 88311; 97110; 97116; 97162; 97167; 97530; 97535; C1776; J0171; J0690; J0697; J0735; J1885; J2250; J2274; J2405; J2795; J3010; J7030

== ENCOUNTER 2018-03-26 18:04 | Inpatient (IN) | END 2018-04-04 16:20 | disposition home or self-care (01) | DRG 329 ==

== ENCOUNTER → 2018-07-27 | Outpatient (CLI) | END | disposition home or self-care (01) ==

== ENCOUNTER → 2018-10-11 | Outpatient (CLI) | END | disposition home or self-care (01) ==

== ENCOUNTER → 2018-11-11 | Outpatient (CLI) | payer BC ==
[~2018-11-11] MED LIST: ALLO100T PO; GABA100C14 PO; HYDR-3672 PO; HYDR-3980 PO
--- NOTE | 2018-11-11 11:55 | PN ---
Date/Time of Note Date/Time of Note DATE: 11/11/18 TIME: 11:51 Outpatient Progress Note Chief Complaint 2-week postop HPI 62-year-old male presents today for two-week postoperative appointment status post right total hip arthroplasty performed on 10/27/2018. Patient is very happy today as he states that his pain is minimal. Patient is up and walking recently with crutches due to increment weather in regards to rain over the past week. Prior to that, patient states that he was using walker infrequently and walking independently with confidence. Denies any falls or injury. Denies any calf pain. Denies any chest pain/tightness. Denies any fever, chills or malaise. Review of Systems Const: No Fever, no chills, no Fatigue, normal appetite, no diaphoresis. Resp: No SOB, no wheezing, no chest pain. CV: No chest pain, no palpitaions, no MEJIA. Physical Exam Blood pressure is 176/95, temperature is 98.6 degrees, pulse is 71, respiratory rate is 16, height is 6 foot 1 inch, weight is 250 pounds General Appearance: well-developed, well-nourished, in no acute distress. Right hip: Surgical wound is clean dry and intact and healing well. No erythema, induration or signs of infection. No tenderness to palpation. Patient is able to ambulate independently without any discomfort. Can raise/flex the hip up to 70 degrees today. 5/5 strength on resistance. Neg ative Homans sign. Imaging: X-ray of the Right hip performed on 11/11/2018 showing all components appearing well aligned, attached and integrated to the bone. No signs of any lucency between metal and bone. Allergies Coded Allergies: No Known Allergy (Unverified , 10/27/18) Assessment/Plan Problems: (1) Status post right hip replacement * Continue aspirin for DVT prophylaxis. * Pain medications as needed. * Patient may continue with physical therapy * Patient will follow-up in 1 month for repeat evaluation. * Patient would like to initiate driving, it was explained that if patient is still doing well with no issues then he may trial driving in 1 week with short distances as tolerated. Medications Home Meds Reported Medications Gabapentin* (Gabapentin*) 100 Mg Capsule, 100 MG PO TID, #90 CAP 10/27/18 Hydrocodone/Acetaminophen ([place] 10-325 Tablet) 1 Each Tablet, 1 EACH PO Q6 PRN for PAIN, TAB 10/27/18 Hydralazine Hcl* (Hydralazine Hcl*) 50 Mg Tab, 50 MG PO Q6H PRN for ELEVATED BLOOD PRESSURE, #60 TAB 10/27/18 Allopurinol* (Allopurinol*) 100 Mg Tablet, 100 MG PO DAILY, TAB 10/27/18 LINA CHANDRA PA-C Nov 11, 2018 11:55
--- NOTE | 2018-11-11 15:34 | RADRPT ---
PROCEDURE: XR Hip. CLINICAL INDICATION: pain TECHNIQUE: AP and frog lateral views of the right hip were performed. COMPARISON: DX HIP_RT 11/12/2017 FINDINGS: There is normal mineralization and alignment. No acute fracture or osseous lesion is identified. The patient is status post right hip replacement. There is appropriate position of the prosthesis. The soft tissues are unremarkable. RPTAT: AA IMPRESSION: Right hip prosthesis in place. .Marlon Chawla MD, MD Date Time Electronically viewed and signed by .Marlon Chawla MD, on 11/11/2018 15:34 .S/
== END | disposition home or self-care (01) ==
LOC: HKI 10:51
PROVIDERS: ATTEND Orthopaedic Surgery Adult Reconstructive Orthopaedic Surgery
DX: Z47.1 Aftercare following joint replacement surgery (principal); Z96.641 Presence of right artificial hip joint
CPT/HCPCS: 73502

== ENCOUNTER → 2018-12-16 | Outpatient (CLI) | payer BC ==
--- NOTE | 2018-12-16 15:02 | CONS ---
Consult Date/Type/Reason Admit Date/Time Initial Consult Date Date/Time of Note DATE: 12/16/18 TIME: 14:58 Subjective DOS: 10/27/2018 Procedure: Right SEEMA 6 weeks s/p right SEEMA performed by my partner Dr. Coleman who returns today for follow up. The patient is doing well overall. Pain is minimal. He does admit to a limp. He wants to return to work. 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 Narcotic Pain medication: No Gait Aids: Crutch Pain better than before surgery: Yes Pleased with outcome. Objective Vitals Weight: 250 pounds Height: 6 foot 0 inches Temperature: 98.4 Heart Rate: 75 Blood Pressure: 156/80 Respiratory Rate: 14 Exam General: Alert, oriented x3. No Acute Distress. Heart: Regular rate and rhythm. Lungs: No respiratory distress. No accessory muscle use. MUSCULOSKELETAL: Right lower Extremity: Incision clean, dry, intact. No skin breakdown, no surrounding erythema. Sensation intact to light touch in a sural, saphenous, deep peroneal, superficial peroneal, medial and lateral plantar nerve distribution. Motor is intact, patient able to dorsiflex and plantarflex ankle a nd extend and flex great toe. Dorsalis Pedis pulse +2, Brisk capillary refill. Compartments are soft. Rises from seated position without difficulty. Gait: Quick pace. Moderate limp. Positive Trendelenburg. No gait aids. Results/Medications Home Meds Reported Medications Gabapentin* (Gabapentin*) 100 Mg Capsule, 100 MG PO TID, #90 CAP 10/27/18 Hydrocodone/Acetaminophen ([place] 10-325 Tablet) 1 Each Tablet, 1 EACH PO Q6 PRN for PAIN, TAB 10/27/18 Hydralazine Hcl* (Hydralazine Hcl*) 50 Mg Tab, 50 MG PO Q6H PRN for ELEVATED BLOOD PRESSURE, #60 TAB 10/27/18 Allopurinol* (Allopurinol*) 100 Mg Tablet, 100 MG PO DAILY, TAB 10/27/18 Imaging Xrays obtained in clinic today and personally reviewed by myself: AP/Lat of the right hip demonstrate hip s/p SEEMA with hip reduced. Components in good position and alignment. No signs of wear, osteolysis, loosening, component failure, or fracture. No acute complications. Assessment/Plan Hospital Course (Demo Recall) 63-year-old male doing well 6 weeks s/p right SEEMA -Patient may return to work. I am recommending mostly office and desk work over the next 2 weeks and slowly reintroduce himself to the field. - DVT Prophylaxis: May discontinue at this time - FU 6 weeks for repeat clinical and radiographic exam - Antibiotic dental prophylaxis for any cleaning or procedure ADELINA KOLB MD Dec 16, 2018 15:02
--- NOTE | 2018-12-16 17:23 | RADRPT ---
PROCEDURE: XR Right Hip. CLINICAL INDICATION: Right hip pain. Postop. TECHNIQUE: Two views. Frontal and lateral. COMPARISON: 11/11/2018. FINDINGS: There is a right hip total arthroplasty. This appears satisfactory with no fracture, dislocation or loosening. There is no lytic lesion. The soft tissues are normal. IMPRESSION: 1. Satisfactory postoperative appearance of the right hip. RPTAT: QQ .Vin Tran MD, MD Date Time Electronically viewed and signed by .Vin Tran MD, on 12/16/2018 17:23 .R/
== END | disposition home or self-care (01) ==
LOC: HKI 13:35
PROVIDERS: ATTEND Orthopaedic Surgery Adult Reconstructive Orthopaedic Surgery
DX: Z09 Encounter for follow-up examination after completed treatment for conditions other than malignant neoplasm (principal); Z96.641 Presence of right artificial hip joint
CPT/HCPCS: 73502

== ENCOUNTER → 2019-01-28 | Outpatient (CLI) | payer BC ==
--- NOTE | 2019-01-28 15:59 | CONS ---
Consult Date/Type/Reason Admit Date/Time Initial Consult Date Date/Time of Note DATE: 01/28/19 TIME: 15:55 Subjective DOS: 10/27/2018 Procedure: Right SEEMA 3 months s/p right SEEMA performed by my partner Dr. Coleman who returns today for follow up. The patient is doing well overall. Pain is minimal. He has his most pain and stiffness when he needs to sit in a car for long periods of time as he often needs to drive 2 or more hours for work. Activity does not bother him. He is walking a lot without any gait aids. He is religiously exercising in doing his home physical therapy. Denies any fevers or chills. Denies numbness and tingling. Narcotic Pain medication: No Gait Aids: none Pain better than before surgery: Yes Pleased with outcome. Objective Vitals Weight: 250 pounds Height: 6 foot 1 inch Temperature: 98.2 Heart Rate: 78 Blood Pressure: 173/106 Respiratory Rate: 14 Exam Objective Vitals Weight: 250 pounds Height: 6 foot 0 inches Temperature: 98.4 Heart Rate: 75 Blood Pressure: 156/80 Respiratory Rate: 14 Exam General: Alert, oriented x3. No Acute Distress. Heart: Regular rate and rhythm. Lungs: No respiratory distress. No accessory muscle use. MUSCULOSKELETAL: Right lower Extremity: Sensation intact to light touch in a sural, saphenous, deep peroneal, superficial peroneal, medial and lateral plantar nerve distribution. Motor is intact, patient able to dorsiflex and plantarflex ankle and extend and flex great toe. Dorsalis Pedis pulse +2, Brisk capillary refill. Compartments are soft. Rises from seated position without difficulty. Gait: Quick pace. Mild limp. Mild Trendelenburg. No gait aids. Results/Medications Home Meds Reported Medications Gabapentin* (Gabapentin*) 100 Mg Capsule, 100 MG PO TID, #90 CAP 10/27/18 Hydrocodone/Acetaminophen ([place] 10-325 Tablet) 1 Each Tablet, 1 EACH PO Q6 PRN for PAIN, TAB 10/27/18 Hydralazine Hcl* (Hydralazine Hcl*) 50 Mg Tab, 50 MG PO Q6H PRN for ELEVATED BLOOD PRESSURE, #60 TAB 10/27/18 Allopurinol* (Allopurinol*) 100 Mg Tablet, 100 MG PO DAILY, TAB 10/27/18 Imaging Xrays obtained in clinic today and personally reviewed by myself: AP pelvis and AP/Lat of the right hip demonstrate hip s/p SEEMA with hip reduced. Components in good position and alignment. No signs of wear, osteolysis, loosening, component failure, or fracture. No acute complications. Assessment/Plan Hospital Course (Demo Recall) 63-year-old male doing well 3 months s/p right SEEMA Follow-up 9 months for annual surveillance for clinical and radiographic evaluation - Antibiotic dental prophylaxis for any cleaning or procedure ADELINA KOLB MD Jan 28, 2019 15:59
--- NOTE | 2019-01-29 17:57 | RADRPT ---
PROCEDURE: XR Right hip and pelvis. CLINICAL INDICATION: Right hip pain. Pelvic pain. Postop. TECHNIQUE: Two views. Frontal pelvis and lateral right hip. COMPARISON: 10/27/2018. FINDINGS: There is no fracture or dislocation. Vascular calcifications are present consistent with atherosclerosis. There is a right hip total arthroplasty which appears satisfactory. There are mild degenerative changes of the left hip with osteophytes noted. There is no lytic or blastic lesion. There are mild degenerative changes of the lower lumbar spine. IMPRESSION: 1. Satisfactory postoperative appearance of the right hip. 2. Mild degenerative changes of the left hip and lower lumbar spine. 3. Atherosclerosis. RPTAT: QQ .Vin Tran MD, Date Time Electronically viewed and signed by .Vin Tran MD, on 01/29/2019 17:57 .R/
== END | disposition home or self-care (01) ==
LOC: HKI 13:38
PROVIDERS: ATTEND Orthopaedic Surgery Adult Reconstructive Orthopaedic Surgery
DX: Z09 Encounter for follow-up examination after completed treatment for conditions other than malignant neoplasm (principal); Z96.641 Presence of right artificial hip joint
CPT/HCPCS: 73502; Z7500; G0463